=== PATIENT | female | born 1950 | race Caucasian/White ===

== ENCOUNTER 2018-04-01 07:28 | Day surgery (SDC) | payer OTHER ==
[2018-03-23 13:13] VITALS: BMI 24.8
[2018-04-01] MEDS ORDERED: PROPOFOL 20 ML ONE ×2 (07:32)
[2018-04-01] MEDS ORDERED: LIDOCAINE HCL/PF 2% SDV 5ML VIAL ONE (07:48)
[2018-04-01 10:23] VITALS: TEMP 97.5
[2018-04-01 10:53] VITALS: BP 143/72; PULSE 55
--- NOTE | 2018-04-02 11:55 | PATH ---
Surgical Pathology Report Patient Name: CHELSIE BLISS [facility]. Rec. #: [id number] /Age/Gender: 1950 (Age: 68) / F Account: [id number] Location: [facility] Taken: 04/01/2018 Received: 04/01/2018 Reported: 04/02/2018 Physicians: Alberto Sanchez M.D. Specimen(s) Received RECTO SIGMOID Clinical History Family history of colonic polyps, history of colonic polyps Postoperative diagnosis: Polyp Final Diagnosis RECTOSIGMOID POLYP, POLYPECTOMY: TUBULAR ADENOMA. Electronically Signed Ambrocio Roman M.D. Gross Description Received in formalin labeled "rectosigmoid," is a 1.2 x 0.6 x 0.3 cm brown, polypoid portion of soft tissue. The specimen is submitted in toto in one cassette. /04/01/2018 saudi/04/01/2018
== END 2018-04-01 09:45 | disposition home or self-care (01) ==
LOC: FASU-ENDO 07:28
PROVIDERS: ATTEND Internal Medicine Gastroenterology
PROC: 0DBN8ZX Excision of Sigmoid Colon, Via Natural or Artificial Opening Endoscopic, Diagnostic (ICD-10-PCS; principal; 2018-04-01 08:24)
DX: Z83.71 Family history of colonic polyps (principal); D12.7 Benign neoplasm of rectosigmoid junction
CPT/HCPCS: 88305-TC

== ENCOUNTER 2025-05-30 08:11 | Day surgery (SDC) | payer OTHER ==
[2025-05-25 15:24] VITALS: BMI 24.3
[2025-05-30 08:44] VITALS: RESP 17
[2025-05-30 14:24] VITALS: TEMP 97.3
[2025-05-30 14:38] VITALS: BP 123/69; PULSE 81
== END 2025-05-30 11:20 | disposition home or self-care (01) ==
LOC: FASU-ENDO 08:11
PROVIDERS: ATTEND Internal Medicine Gastroenterology
PROC: 0DB78ZX Excision of Stomach, Pylorus, Via Natural or Artificial Opening Endoscopic, Diagnostic (ICD-10-PCS; 2025-05-30)
PROC: 0DB68ZX Excision of Stomach, Via Natural or Artificial Opening Endoscopic, Diagnostic (ICD-10-PCS; 2025-05-30)
PROC: 0DB98ZX Excision of Duodenum, Via Natural or Artificial Opening Endoscopic, Diagnostic (ICD-10-PCS; principal; 2025-05-30 10:24)
DX: K29.50 Unspecified chronic gastritis without bleeding (principal); K31.89 Other diseases of stomach and duodenum
CPT/HCPCS: 88305-TC; 88342-TC